=== PATIENT | female | born 1945 | race Caucasian/White ===

== ENCOUNTER 2016-10-11 09:43 | Outpatient (CLI) | payer MEDICARE | END 2016-10-11 09:44 | disposition home or self-care (01) | DX: I10 Essential (primary) hypertension (principal) ==

== ENCOUNTER 2016-11-05 13:57 | Outpatient (CLI) | payer MEDICARE | END 2016-11-05 13:58 | disposition critical access hospital (66) | LOC: EMS 13:57 | PROVIDERS: ATTEND Surgery | DX: M25.561 Pain in right knee (principal) | CPT/HCPCS: A0425; A0429 ==

== ENCOUNTER 2016-11-05 14:18 | Emergency (ER) | payer MEDICARE ==
[2016-11-05] MEDS ORDERED: INDOMETHACIN 25 MG CAPSULE PO STA (14:38)
--- NOTE | 2016-11-05 14:40 | ED Physician Documentation ---
PD HPI LOWER EXT INJURY - Stated complaint Stated Complaint: RT KNEE PAIN - Chief complaint Chief Complaint: Ext Problem - History obtained from History obtained from: Patient - History of Present Illness PD HPI LOW EXT INJURY LOCATION: Right (She had indolent popliteal fossa pain, a deep aching waxing and waning pain for the last day which suddenly worsened while walking without specific injury today and she is unable to walk.) Review of Systems Constitutional: reports: Reviewed and negative Cardiac: reports: Reviewed and negative Respiratory: reports: Reviewed and negative GI: reports: Reviewed and negative PD PAST MEDICAL HISTORY - Past Medical History Cardiovascular: Hypertension Respiratory: None Endocrine/Autoimmune: None GI: None : None, Kidney stones HEENT: Chronic hearing loss Psych: None Musculoskeletal: None Derm: None - Past Surgical History Past Surgical History: No HEENT: Tonsil/Adenoidectomy - Present Medications Home Medications: Ambulatory Orders Medication Instructions Recorded Confirmed Multivitamin [Multi-Vitamin Daily] 1 each PO DAILY 05/13/15 05/13/15 Hydrochlorothiazide 12.5 mg PO DAILY 11/05/16 11/05/16 Meloxicam [Mobic] 7.5 mg PO BIDWM PRN #15 tablet 11/05/16 - Allergies Allergies/Adverse Reactions: Allergies Allergy/AdvReac Type Severity Reaction Status Date / Time No Known Drug Allergies Allergy Verified 12/13/12 00:17 - Social History Does the pt smoke?: No Smoking Status: Never smoker Does the pt drink ETOH?: No Does the pt have substance abuse?: No - Immunizations Immunizations are current?: Yes - POLST Patient has POLST: No PD ED PE NORMAL - Vitals Vital signs reviewed: Yes - General General: Alert and oriented X 3, No acute distress - Extremities Extremities: Other (Right knee is nontender anteriorly but she does have some tenderness in the lateral popliteal fossa and severe pain with flexion either active or passive. There is no effusion. No calf swelling or tenderness.) - Neuro Neuro: Alert and oriented X 3, Normal speech - Psych Psych: Normal mood, Normal affect Results - Vitals Vitals: Vital Signs - 24 hr 11/05/16 11/05/16 14:20 17:22 Temperature 36.9 C Heart Rate 94 80 Respiratory 14 16 Rate Blood Pressure 159/80 H 146/88 H O2 Saturation 96 98 Oxygen O2 Source Room air - Rads (name of study) 4v R knee Radiology: EMP read contemporaneously (minimal OA, NAD) RLE Duples Radiology: EMP read contemporaneously (No DVT, positive for a small Pereyra's cyst ) Departure - Departure Disposition: 01 Home, Self Care Clinical Impression: Right leg pain Knee pain, right Qualifiers: Chronicity: acute Qualified Code(s): M25.561 - Pain in right knee Pereyra's cyst of knee Qualifiers: Laterality: right Qualified Code(s): M71.21 - Synovial cyst of popliteal space [Pereyra], right knee Condition: Good Record reviewed to determine appropriate education?: Yes Instructions: ED Cyst Pereyra Follow-Up: [facility] [Provider Group] Prescriptions: Meloxicam [Mobic] 7.5 mg PO BIDWM PRN #15 tablet PRN Reason: Pain Comments: Call Sunday for followup in the orthopedics office for evaluation and treatment of your Pereyra's cyst. Return if worse. Your blood pressure was elevated today on check in to the emergency department. This does not mean that you have hypertension, it is a common phenomenon to check into the emergency department and have elevated blood pressure. I recommend that you see your primary care physician within the week to have it rechecked when you're feeling better. Discharge Date/Time: 11/05/16 17:22
[2016-11-05] MEDS ORDERED: INDOMETHACIN 25 MG CAPSULE PO ONE (14:41)
--- NOTE | 2016-11-05 15:53 | XRAY Preliminary Report ---
Exam: XR Knee 4 View RT IMPRESSION: Minimal osteoarthritis. No evidence of fracture. [facility] SITE ID: [id number]
--- NOTE | 2016-11-05 15:56 | XRAY Report ---
EXAM: RIGHT KNEE RADIOGRAPHY EXAM DATE: 11/05/2016 03:40 PM. CLINICAL HISTORY: Knee pain. COMPARISON: None. TECHNIQUE: 4 views. FINDINGS: Bones: Normal. No fractures or bone lesions. Joints: Minimal osteoarthritis. No effusion. Soft Tissues: Normal. No soft tissue swelling. IMPRESSION: Minimal osteoarthritis. No evidence of fracture. [facility] Referring Provider Line: [phone] SITE ID: [id number]
[2016-11-05 17:23] VITALS: BP 146/88
--- NOTE | 2016-11-05 17:37 | Ultrasound Preliminary Report ---
Exam: US Duplex Ext Veins Right IMPRESSION: No evidence for deep venous thrombosis. [facility] SITE ID: [id number]
--- NOTE | 2016-11-05 17:39 | Ultrasound Report ---
EXAM: RIGHT LOWER EXTREMITY VENOUS ULTRASOUND EXAM DATE: 11/05/2016 04:59 PM. CLINICAL HISTORY: RLE pain, DVt vs bakers cyst. COMPARISON: None. TECHNIQUE: Real-time sonographic vascular imaging was performed by the category manager through the lower extremity utilizing both color-flow and Doppler spectral analysis. Multiple key account representative static shikha ges were saved for review. FINDINGS: Common Femoral Vein (CFV): Normal. CFV-GSV Junction: Normal. Profunda Femoral Vein (PFV): Normal. Femoral Vein (FV) Prox: Normal. Femoral Vein (FV) Mid: Normal. Femoral Vein (FV) Dist: Normal. Popliteal Vein: Normal. Posterior Tibial Veins: Normal. Peroneal Veins: Normal. Other: Incidental note is made of a small Pereyra's cyst in the popliteal fossa, measuring 2.5 x 1.9 x 0.5 cm. Additionally, a small knee joint effusion is noted. IMPRESSION: No evidence for deep venous thrombosis. [facility] Referring Provider Line: [phone] SITE ID: [id number]
== END 2016-11-05 17:22 | disposition home or self-care (01) ==
LOC: EDUNIT# → ED 14:18
DX: M25.561 Pain in right knee (principal); M71.21 Synovial cyst of popliteal space [Baker], right knee; M17.11 Unilateral primary osteoarthritis, right knee; I10 Essential (primary) hypertension; R03.0 Elevated blood-pressure reading, without diagnosis of hypertension
CPT/HCPCS: 73564; 93971; 99283; A9270

== ENCOUNTER 2017-11-23 15:23 | Outpatient (CLI) | payer MEDICARE | END 2017-11-23 15:24 | disposition home or self-care (01) | LOC: LAB.R 15:23 | PROVIDERS: ATTEND Family Medicine | DX: R31.9 Hematuria, unspecified (principal) | CPT/HCPCS: 87086 ==

== ENCOUNTER 2017-11-26 08:40 | Outpatient (CLI) | END 2017-11-26 08:41 | disposition home or self-care (01) ==

== ENCOUNTER 2018-07-26 09:21 | Outpatient (CLI) | payer MEDICARE ==
[2018-07-26 13:06] LABS: BASOPHILS % (AUTO) 0.7 %; EOSINOPHILS # (AUTO) 0.1 10^3/uL (0.0-0.7); EOSINOPHILS % (AUTO) 2.7 %; HGB - HEMOGLOBIN 13.9 g/dL (12.0-16.0); LYMPHOCYTES # (AUTO) 1.4 10^3/uL (1.5-3.5); LYMPHOCYTES % (AUTO) 28.6 %; MEAN CORPUSCULAR HEMOGLOBIN 29.8 pg (27.0-31.0); MEAN CORPUSCULAR HGB CONC 33.7 g/dL (32.0-36.0); MEAN CORPUSCULAR VOLUME 88.5 fL (81.0-99.0); MEAN PLATELET VOLUME 9.7 fL (7.9-10.8); MONOCYTES # (AUTO) 0.4 10^3/uL (0.0-1.0); MONOCYTES % (AUTO) 7.7 %; NEUTROPHILS % (AUTO) 60.3 %; PLT - PLATELET COUNT 181 10^3/uL (130-450); RED BLOOD COUNT 4.66 10^6/uL (4.20-5.40); RED CELL DISTRIBUTION WIDTH 14.4 % (12.0-15.0)
[2018-07-26 14:08] LABS: ALBUMIN/GLOBULIN RATIO 1.5 (1.0-2.2); ALKALINE PHOSPHATASE 71 IU/L (42-121); ALT ALANINE AMINOTRANSFERASE 23 IU/L (10-60); AST ASPARTATE AMINOTRANSFERASE 26 IU/L (10-42); BILIRUBIN,TOTAL 0.9 mg/dL (0.2-1.0); BUN - BLOOD UREA NITROGEN 17 mg/dL (6-20); CALCIUM 9.1 mg/dL (8.5-10.3); CARBON DIOXIDE - CO2 30 mmol/L (21-32); CHLORIDE 103 mmol/L (101-111); CHOL/HDL RATIO 1.8 (<4.4); CHOLESTEROL 181 mg/dL; CREATININE 0.6 mg/dL (0.4-1.0); GFR - MDRD 98 (>89); GLUCOSE 89 mg/dL (70-100); HDL CHOLESTEROL 98 mg/dL; LDL CHOLESTEROL,CALCULATED 71 mg/dL; LDL/HDL RATIO 0.7 (<4.4); SODIUM 142 mmol/L (135-145); TOTAL PROTEIN 6.6 g/dL (6.7-8.2); VLDL CHOLESTEROL 12 mg/dL
== END 2018-07-26 09:22 | disposition home or self-care (01) ==
LOC: LAB.WCP 09:21
PROVIDERS: ATTEND Physician Assistant
DX: I10 Essential (primary) hypertension (principal); Z13.220 Encounter for screening for lipoid disorders
CPT/HCPCS: 36415; 80053; 80061; 83721; 85025

== ENCOUNTER 2018-12-20 08:28 | Outpatient (CLI) | payer MEDICARE ==
--- NOTE | 2018-12-23 08:16 | Mammography Report ---
Reason: SCREENING MAMMO Procedure Date: 12/20/2018 Accession Number: [id number] / [id number] Procedure: DEEPTI - Screening Mammo w/Jace CPT Code: FULL RESULT: EXAM: Screening Mammo w/Jace DATE: 12/20/2018 9:00 AM CLINICAL HISTORY: Screening encounter. 10 years of estrogen therapy. TECHNIQUE: (B) - Bilateral CC, laterally exaggerated CC, MLO views were obtained. COMPARISON: 04/14/2016 through 09/29/2011. PARENCHYMAL PATTERN: (A) - The breast(s) demonstrate(s) scattered fibroglandular densities. FINDINGS: There are coarse typically benign calcifications. There are no suspicious masses, calcifications, or areas of distortion. IMPRESSION: Benign findings. BI-RADS category 2. RECOMMENDATION: (ANNUAL) - Recommend routine annual screening mammography. BI-RADS CATEGORY: (2) - Benign Findings. STANDARD QUALIFYING STATEMENTS: 1. This examination was not reviewed with the aid of Computer-Aided Detection (CAD). 2. A negative or benign imaging report should not preclude biopsy if clinically suspicious findings are present. 3. Dense breasts may obscure an underlying neoplasm. 4. This examination was reviewed with the aid of 3D breast imaging (tomosynthesis).
== END 2018-12-20 08:29 | disposition home or self-care (01) ==
LOC: DI 08:28
DX: Z12.31 Encounter for screening mammogram for malignant neoplasm of breast (principal)
CPT/HCPCS: 77063; 77067

== ENCOUNTER 2019-02-27 07:24 | Day surgery (SDC) | payer MEDICARE ==
[~2019-02-27 07:24] MED LIST: SODIUM/POTASSIUM/MAG SULFATES 354 ML PREP KIT PO SCH
[2019-02-27] MEDS ORDERED: fentaNYL 250 MCG/5 ML VIAL IVP ONE (07:25)
[2019-02-27] MEDS ORDERED: MIDAZOLAM 2 MG/2 ML VIAL IVP ONE (07:25)
[2019-02-27] MEDS ORDERED: LACTATED RINGERS 1,000 ML IV ONE (07:41)
[2019-02-27 11:00] VITALS: BP 112/71
== END 2019-02-27 07:25 | disposition home or self-care (01) ==
LOC: SDS 07:24
PROVIDERS: ATTEND Surgery
PROC: 0DBL8ZZ Excision of Transverse Colon, Via Natural or Artificial Opening Endoscopic (ICD-10-PCS; principal; 2019-02-27 09:00)
DX: Z12.11 Encounter for screening for malignant neoplasm of colon (principal); K21.9 Gastro-esophageal reflux disease without esophagitis; Z79.899 Other long term (current) drug therapy; I10 Essential (primary) hypertension; Z80.49 Family history of malignant neoplasm of other genital organs; K64.8 Other hemorrhoids; K63.5 Polyp of colon
CPT/HCPCS: 45380; A9270; J3010; J7120

== ENCOUNTER 2019-08-21 09:41 | Outpatient (CLI) | payer MEDICARE | END 2019-08-21 23:59 | disposition home or self-care (01) | LOC: LAB.R 09:41 | PROVIDERS: ATTEND Family Medicine | DX: R82.90 Unspecified abnormal findings in urine (principal) | CPT/HCPCS: 87086 ==

== ENCOUNTER 2020-10-07 13:58 | Emergency (ER) | payer MEDICARE ==
[2020-10-07 14:12] VITALS: BP 141/72
--- NOTE | 2020-10-07 14:28 | ED Physician Documentation ---
PD HPI LOWER EXT INJURY - Stated complaint Stated Complaint: L KNEE PX - Chief complaint Chief Complaint: Ext Problem - History obtained from History obtained from: Patient - History of Present Illness PD HPI LOW EXT INJURY LOCATION: Left, Knee - Additional information Additional information: For several months, without specific injury she has had left knee pain which was excruciating last night. Its in the anterior lateral knee and hurts to walk. She has a history of a Pereyra's cyst on the contralateral side. No history of knee surgery. No exterior pain or calf pain. Review of Systems Constitutional: reports: Reviewed and negative Eyes: reports: Reviewed and negative Ears: reports: Reviewed and negative Nose: reports: Reviewed and negative Throat: reports: Reviewed and negative PD PAST MEDICAL HISTORY - Past Medical History Cardiovascular: Hypertension Respiratory: None Endocrine/Autoimmune: None GI: GERD : Kidney stones HEENT: Chronic hearing loss Psych: None Musculoskeletal: None Derm: None - Past Surgical History Past Surgical History: No HEENT: Tonsil/Adenoidectomy - Present Medications Home Medications: Ambulatory Orders Medication Instructions Recorded Confirmed Multivitamin [Multi-Vitamin Daily] 1 each PO DAILY 05/13/15 02/26/19 hydroCHLOROthiazide 12.5 mg PO DAILY 11/05/16 02/26/19 [Hydrochlorothiazide] Meloxicam [Mobic] 7.5 mg PO BID PRN #20 tablet 10/07/20 - Allergies Allergies/Adverse Reactions: Allergies Allergy/AdvReac Type Severity Reaction Status Date / Time No Known Drug Allergies Allergy Verified 10/07/20 14:12 - Social History Does the pt smoke?: No Smoking Status: Never smoker Does the pt drink ETOH?: No Does the pt have substance abuse?: No - Immunizations Immunizations are current?: Yes - POLST Patient has POLST: No PD ED PE NORMAL - Vitals Vital signs reviewed: Yes - General General: Alert and oriented X 3, No acute distress - HEENT HEENT: PERRL, EOMI - Neck Neck: Supple, no meningeal sign, No bony TTP - Extremities Extremities: Other (Both knees have small effusions, full range of motion, no warmth or redness. She is mildly tender along the lateral joint line of the left knee with intact ligamentous testing. No calf tenderness, no popliteal tenderness.) - Neuro Neuro: Alert and oriented X 3, Normal speech Results - Vitals Vitals: Vital Signs - 24 hr 10/07/20 14:07 Temperature 36.9 C Heart Rate 82 Respiratory 15 Rate Blood Pressure 141/72 H O2 Saturation 97 Oxygen O2 Source Room air PD MEDICAL DECISION MAKING - ED course ED course: 74-year-old woman presents with subacute but worsening at times left knee pain. She has a small effusion. X-ray demonstrates an effusion but no significant arthritis. There is no clinical evidence of infection. She will be started on NSAID pending follow-up with orthopedics. Departure - Departure Disposition: 01 Home, Self Care Clinical Impression: Knee effusion, left Condition: Good Record reviewed to determine appropriate education?: Yes Instructions: ED Effusion Knee Follow-Up: [facility] [Provider Group] - Within 3 Days Prescriptions: Meloxicam [Mobic] 7.5 mg PO BID PRN #20 tablet PRN Reason: Pain Comments: As discussed, you were seen today for pain due to an effusion of the left knee. Probably does need further work-up, there is no evidence of infection now. If you do develop a fever or redness of the joint please return immediately for reevaluation. Otherwise call the orthopedics office for the next available appointment. Discharge Date/Time: 10/07/20 15:22
--- NOTE | 2020-10-07 14:52 | XRAY Report ---
PROCEDURE: Knee 3 View LT INDICATIONS: ATRAUMATIC KNEE PAIN TECHNIQUE: 3 views of the left knee(s) were acquired. COMPARISON: None. FINDINGS: Bones: No fractures or dislocations. No suspicious bony lesions. Soft tissues: There is a small to moderate joint effusion. No suspicious soft tissue calcifications. IMPRESSION: Suprapatellar [id number] joint effusion. No trauma found. Etiology of this fusion is indeterminate and could represent a manifestation of internal derangement of the knee from the sc st. Reviewed by: Zach Nj MD on 10/07/2020 2:50 PM PDT Approved by: Zach Nj MD on 10/07/2020 2:50 PM PDT Station ID: [id number]
== END 2020-10-07 15:22 | disposition home or self-care (01) ==
LOC: ED 13:58
DX: M25.462 Effusion, left knee (principal); I10 Essential (primary) hypertension
CPT/HCPCS: 99283; 99284

== ENCOUNTER 2021-11-23 14:20 | Outpatient (CLI) | payer MEDICARE ==
--- NOTE | 2021-11-23 17:08 | Ultrasound Report ---
PROCEDURE: Pelvic w/Transvaginal, ultrasound INDICATIONS: UTEROVAGINAL PROLAPSE TECHNIQUE: Real-time scanning was performed of the pelvic organs, with image documentation. Additional endovagi nal scanning was necessary due to incomplete visualization of the adnexal and endometrial structures by transabdominal scanning. COMPARISON: None. FINDINGS: Uterus: Uterus is retroverted and normal in size at 7.4 x 2.4 x 4.2 cm. The myometrium is heterogen ous. The endometrium measures 4 mm in combined thickness. Endometrium is complex echotexture. Possi ble intramural fibroid noted in the cervix or lower uterine segment measuring 1.1 cm Ovaries: The right ovary measures 1.2 x 0.8 x 0.9 cm, with a calculated ovarian volume of 0.46 cc. The left ovary measures 1.2 x 0.8 x 0.6 cm, with a calculated ovarian volume of 0.29 cc. The ovaries have a normal sonographic appearance. Less than 12 follicles can be seen in each ovary. No adnexal masses are seen. Fluid in the left adnexa measures 2 x 0.9 x 1.7 cm and has a somewhat tubular appearance. Simple free fluid present in the pelvis as well IMPRESSION: 1. Possible left-sided hydrosalpinx could be confirmed with MRI 2. Small fibroid noted in the lower uterine segment or cervix. 3. Additional simple free fluid in the pelvis. Reviewed by: Baljeet Chapman MD on 11/23/2021 4:07 PM TYRON Approved by: Baljeet Chapman MD on 11/23/2021 4:07 PM TYRON Station ID: [id number]
== END 2021-11-23 14:21 | disposition home or self-care (01) ==
LOC: DI 14:20
PROVIDERS: ATTEND Obstetrics & Gynecology
DX: D25.9 Leiomyoma of uterus, unspecified (principal); R18.8 Other ascites

== ENCOUNTER 2023-04-16 09:46 | Outpatient (CLI) | payer MEDICARE ==
--- NOTE | 2023-04-16 12:14 | Mammography Report ---
BILATERAL DIGITAL SCREENING MAMMOGRAM 3D/2D: 04/16/2023 CLINICAL: Routine screening. Comparison is made to exams dated: 02/08/2022 mammogram, 12/20/2018 mammogram, 04/14/2016 mammogram, an d 06/10/2014 mammogram - [facility]. Both breasts are heterogeneously dense, which may obscure small masses (category c / 51-75% glandular tissue). No significant masses, calcifications, or other findings are seen in either breast. There has been no significant interval change. IMPRESSION: NEGATIVE There is no mammographic evidence of malignancy. A 1 year screening mammogram is recommended. Based on the Tyrer Cuzick model (a risk assessment model) the patients lifetime risk is 2.7% and her 10 year risk is 0.0%. According to the ACR, ACS, and NCCN guidelines, an annual breast MRI exam bandar g with mammogram is recommended if the patients lifetime risk is 20% or greater. This exam was interpreted at Station ID: [id number]. NOTE: For mammograms, a report in lay terms will be sent to the patient. Approximately 15% of breast malignancies will not be visualized mammographically. In the management of a palpable breast mass, a negative mammogram must not discourage biopsy of a clinically suspicious lesion. Electronically Signed By: Timo gaitan/magdaleno:04/16/2023 10:29:16 letter sent: No_Letter ACR BI-RADS Category 1: Negative 3341F PARENCHYMAL PATTERN: (D) - The breast(s) demonstrate(s) heterogeneously dense fibroglandular lauren gonzalez. BI-RADS CATEGORY: (1) - 1 Mammogram [id number] 1 year screening LATERALITY: (B)
== END 2023-04-16 09:47 | disposition home or self-care (01) ==
LOC: DI 09:46
PROVIDERS: ATTEND Internal Medicine
DX: Z12.31 Encounter for screening mammogram for malignant neoplasm of breast (principal); R92.333 Mammographic heterogeneous density, bilateral breasts

== ENCOUNTER 2023-07-29 07:52 | Outpatient (CLI) | payer MEDICARE | END 2023-07-29 23:59 | disposition critical access hospital (66) | LOC: EMS 07:52 | DX: R42 Dizziness and giddiness (principal); R11.2 Nausea with vomiting, unspecified | CPT/HCPCS: A0425; A0427 ==

== ENCOUNTER 2023-07-29 08:01 | Emergency (ER) | payer MEDICARE ==
--- NOTE | 2023-07-29 08:25 | ED Physician Documentation ---
PD HPI HEENT - Stated complaint Stated Complaint: VERTIGO - Chief complaint Chief Complaint: Neuro - History obtained from History obtained from: Patient, EMS (IV started and given Zofran enroute for nausea, without much improvement.) - History of Present Illness Timing - onset: How many hours ago (2), Today Timing - duration: Hours (2) Timing - details: Abrupt onset (she felt slight vertigo with bending/standing up last evening. awoke this moring with onset of severe vertigo when she sat up from lying in bed. Severe room spinning and caused nausea with vomting. Lessened with lying back down. Worse with any head movmenet. [place] best lying on left side. No ABBOTT.), Still present Location: Other (Severe vertigo when got up this morning. Feels room spinning left to right direction. No vision loss. poor hearing at baseline, and has not noted difference today. No tinnitus.) Improves: Other (lying very still, joelle left side down.) Worsens: Other (moving head/position) Associated symptoms: No: Fever, Congestion, Rhinorrhea, Headache, Cough Similar symptoms before: Diagnosis (had episode of vertigo many years ago similar. No recent symptoms. She had been gardening 2 days ago with lots of bending over. Did not feel vertigo at that time. Some last evening mildly with bending over briefly.) Review of Systems Constitutional: denies: Fever, Chills Eyes: denies: Decreased vision, Photophobia Ears: reports: Loss of hearing (chronic). denies: Ear pain Nose: denies: Rhinorrhea / runny nose, Congestion Throat: denies: Sore throat Respiratory: denies: Cough Neurologic: denies: Focal weakness, Numbness, Altered mental status, Headache, Head injury PD PAST MEDICAL HISTORY - Past Medical History Cardiovascular: Hypertension Respiratory: None Endocrine/Autoimmune: None GI: GERD : Kidney stones HEENT: Chronic hearing loss Psych: None Musculoskeletal: None Derm: None - Past Surgical History Past Surgical History: No HEENT: Tonsil/Adenoidectomy - Present Medications Home Medications: Ambulatory Orders Medication Instructions Recorded Confirmed hydroCHLOROthiazide 12.5 mg PO DAILY 11/05/16 07/29/23 [Hydrochlorothiazide] Meclizine HCl [Motion Sickness] 25 mg PO Q6H PRN #30 tablet 07/29/23 - Allergies Allergies/Adverse Reactions: Allergies Allergy/AdvReac Type Severity Reaction Status Date / Time No Known Drug Allergies Allergy Verified 10/07/20 14:12 - Social History Does the pt smoke?: No Smoking Status: Never smoker Does the pt drink ETOH?: No Does the pt have substance abuse?: No - Immunizations Immunizations are current?: Yes - POLST Patient has POLST: No PD ED PE NORMAL - Vitals Vital signs reviewed: Yes - General General: Alert and oriented X 3, Well developed/nourished, Other (very reluctant to move from lying down. Is on her left side. Eye movements show notable nystagmus to the right. I could not get a good sense of a HINTs exam.) - HEENT HEENT: PERRL, Ears normal, Pharynx benign - Neck Neck: Supple, no meningeal sign, No adenopathy, No bruit - Cardiac Cardiac: RRR, No murmur - Respiratory Respiratory: Clear bilaterally - Neuro Neuro: Alert and oriented X 3, traffic monitor specialist 2-12 intact, No motor deficit, No sensory deficit, Normal speech Results - Vitals Vitals: Vital Signs - 24 hr 07/29/23 07/29/23 08:05 09:52 Temperature 36 C L Heart Rate 83 68 Respiratory 18 14 Rate Blood Pressure 147/75 H 118/69 O2 Saturation 100 100 Oxygen O2 Source Room air - Labs Labs: Laboratory Tests 07/29/23 07/29/23 09:00 09:00 WBC 6.5 RBC 4.34 Hgb 12.7 Hct 40.0 MCV 92.2 MCH 29.3 MCHC 31.8 L RDW 13.2 Plt Count 162 MPV 10.9 H Neut # (Auto) 5.0 Lymph # (Auto) 1.0 L [place] # (Auto) 0.4 Eos # (Auto) 0.1 Baso # (Auto) 0.1 Absolute Nucleated RBC 0.00 Nucleated RBC % 0.0 Sodium 141 Potassium 3.8 Chloride 105 Carbon Dioxide 31 Anion Gap 5.0 L BUN 18 Creatinine 0.7 Estimated GFR (MDRD) 81 L Glucose 137 H Calcium 9.7 Magnesium 1.9 Total Bilirubin 0.5 AST 20 ALT 21 Alkaline Phosphatase 70 Total Protein 6.3 L Albumin 3.8 Globulin 2.5 Albumin/Globulin Ratio 1.5 Lipase 36 PD Medical Decision Making - ED course Complexity details: re-evaluated patient (She was given Meclizine, Diazepam (for vertigo) and fluids. Moderately improved vertigo to where she can move head gently/slowly without vomiting. I coached her about trying rotational movement slowly, with her rolling slowly from left, to mostly face down, to right down, then on back with pauses.), considered differential (very distinct positonal vertigo. No other deficits. Has nystagmus to right. She favors lying left side down as less vertigo holding still there. ), d/w patient ED course: with a combination of improvement with medications and time, but perhaps with the slow rolling on her own (Jose like maneuvering), she states she is considerably improved. When sat up was mild dizzy, more with standing and had small gagging emesis. However can sit up in bed. Another 30 minutes recheck and she sates better still and feels she can walk out nad home without emesis. I do not get a sense of central cause and has improved with meds for vertigo and with some body rotational movming. 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 Departure - Departure Disposition: 01 Home, Self Care Clinical Impression: Acute severe vertigo, Nausea and vomiting Condition: Stable Record reviewed to determine appropriate education?: Yes Instructions: ED Vertigo Unspecified Follow-Up: Margarette Madison MD [Primary Care Provider] - Prescriptions: Meclizine HCl [Motion Sickness] 25 mg PO Q6H PRN #30 tablet PRN Reason: Vertigo Comments: Your vertigo sounds most likely to relate to small calcifications in the inner ear that land on and irritate the nerves that lead to position sense and movement. You do seem to be improved now with some medication and the turning and position. There may be some persistent vertigo with movements over the next couple of days. Use meclizine every 6 hours if needed for vertigo. Change position and move slowly over the next few days until your more like your usual self. Follow-up with your primary care if persistent symptoms or recur severely. Return to the ER if needed. I sent prescription to your preferred pharmacy. Forms: PCP List Discharge Date/Time: 07/29/23 11:45
[2023-07-29 08:27] VITALS: O2SAT 100
[2023-07-29] MEDS: SODIUM CHLORIDE 0.9% 500 ML IV STA (08:52)
[2023-07-29 09:04] LABS: BASOPHILS # (AUTO) 0.1 10^3/uL (0.0-0.1); BASOPHILS % (AUTO) 0.8 %; EOSINOPHILS # (AUTO) 0.1 10^3/uL (0.0-0.7); EOSINOPHILS % (AUTO) 1.4 %; HGB - HEMOGLOBIN 12.7 g/dL (12.0-16.0); MEAN CORPUSCULAR HEMOGLOBIN 29.3 pg (27.0-31.0); MEAN CORPUSCULAR HGB CONC 31.8 g/dL (32.0-36.0); MEAN CORPUSCULAR VOLUME 92.2 fL (81.0-99.0); MEAN PLATELET VOLUME 10.9 fL (7.9-10.8); MONOCYTES # (AUTO) 0.4 10^3/uL (0.0-1.0); MONOCYTES % (AUTO) 5.5 %; PLT - PLATELET COUNT 162 10^3/uL (130-450); RED BLOOD COUNT 4.34 10^6/uL (4.20-5.40); RED CELL DISTRIBUTION WIDTH 13.2 % (12.0-15.0); WHITE BLOOD COUNT 6.5 x10^3/uL (4.8-10.8)
[2023-07-29] MEDS: KETOROLAC 15 MG/ML VIAL IVP STA (09:04)
[2023-07-29] MEDS: diazePAM INJ 5 MG/ML SYRINGE IVP STA (09:05)
[2023-07-29] MEDS: MECLIZINE 12.5 MG TABLET PO STA (09:05)
[2023-07-29 09:23] LABS: ALBUMIN 3.8 g/dL (3.2-5.5); ALBUMIN/GLOBULIN RATIO 1.5 (1.0-2.2); BILIRUBIN,TOTAL 0.5 mg/dL (0.2-1.0); CALCIUM 9.7 mg/dL (8.5-10.3); CREATININE 0.7 mg/dL (0.6-1.3); MAGNESIUM 1.9 mg/dL (1.7-2.3); POTASSIUM 3.8 mmol/L (3.5-4.5); TOTAL PROTEIN 6.3 g/dL (6.4-8.9)
[2023-07-29 09:53] VITALS: BP 118/69
[2023-07-29] MEDS: diphenhydrAMINE INJ 50 MG/ML VIAL IVP STA (11:10)
== END 2023-07-29 11:45 | disposition home or self-care (01) ==
LOC: EDUNIT# → ED 08:01
DX: R42 Dizziness and giddiness (principal)
CPT/HCPCS: 36415; 80053; 83690; 83735; 85025; 96374; 96375; 99283; A9270; J1200